=== PATIENT | female | born 1990 | race Caucasian/White ===

== ENCOUNTER 2024-08-29 12:53 | Outpatient (CLI) | payer OTHER, SELFPAY ==
--- NOTE | ~2024-08-29 | MR_ITS ---
MRI of the pelvis CLINICAL HISTORY: Abnormal uterine bleeding TECHNIQUE: Coronal T2 weighted and T2 fat-sat images, sagittal T2-weighted images, and axial T1-weigh sergio in and out of phase images, T2-weighted images, and T2 fat-sat images were performed. Following i ntravenous administration of 17 cc MultiHance gadolinium, T1-weighted fat-sat imaging was performed i n the axial, coronal, and sagittal planes. FINDINGS: Uterus is retroverted. There is an extremely large larger exophytic fibroid from the anteri or wall of the uterus, measuring 12.1 x 10.9 x 9.7 cm in size. There is a probable additional 1.2 cm fibroid intramurally located in the posterior wall. No junctional zone thickening. Small fluid presen t in the endometrial cavity, likely related to stage of the menstrual cycle. No other adnexal mass seen. No ascites. Urinary bladder unremarkable. No lymphadenopathy evident. There is osseous structures and joint spaces are intact. No muscle atrophy or edema seen. No peripher al soft tissue mass or fluid collection evident. IMPRESSION: Dominant 12.1 x 10.9 x 9.7 uterine fibroid, as detailed above. Probable additional 1.2 cm fibroid, as detailed above. Reviewed, dictated and finalized at location M. IMPRESSION: Dominant 12.1 x 10.9 x 9.7 uterine fibroid, as detailed above. Probable additio nal 1.2 cm fibroid, as detailed above.
--- NOTE | ~2024-08-29 | MR_ITS ---
MRI of the abdomen: Clinical indication: Intra-abdominal mass/swelling. Technique: Coronal SSFSE ARC, WATER:coronal LAVA-FLEX, Coronal 2D FIESTA FatSat, Axial SSFSE BH ARC, Axial 3D DualEcho BH, Axial SSFSE-IR, Axial DWI b=500, Axial 2D FIESTA FatSat, pre and dynamic postco ntrast Axial LAVA ARC, postcontrast Coronal In and Opposed phase LAVA FLEX. Following intravenous adm inistration of 17 cc MultiHance gadolinium, T1-weighted fat-sat imaging was performed in the axial an d coronal planes. Findings: Gallbladder unremarkable. The common bile duct is normal in course and caliber. No filling defects are seen within the CBD. No evidence of intrahepatic biliary ductal dilatation. The pancreati c duct is normal in size. Liver, spleen, pancreas, adrenals, kidneys appear normal. The aorta and the paraaortic regions appear normal. No abnormal postcontrast enhancement seen. Impression: Unremarkable exam. Reviewed, dictated and finalized at location . Impression: Unremarkable exam.
== END 2024-08-29 12:54 | disposition home or self-care (01) ==
LOC: MICIMG 12:53
PROVIDERS: PCP Obstetrics & Gynecology; Visit Provider Obstetrics & Gynecology
DX: D25.9 Leiomyoma of uterus, unspecified (principal)
CPT/HCPCS: 72197; 74183; A9577